=== PATIENT | female | born 1960 | race Two or more races ===

== ENCOUNTER 2019-11-22 10:31 | Inpatient (IN) | payer MEDICARE, OTHER ==
[~2019-11-22] VITALS: Ht 162.6 cm; Wt 79.4 kg
[2019-11-22 12:28] VITALS: BP 122/68
[2019-11-22] MEDS ORDERED: MAG HYDROX/AL HYDROX/SIMETH 30 ML UDC PO PRN (12:30)
[2019-11-22] MEDS ORDERED: ACETAMINOPHEN 325 MG TABLET PO PRN (12:30)
[2019-11-22] MEDS ORDERED: MAGNESIUM HYDROXIDE 30 ML UDC PO PRN (12:30)
[2019-11-22] MEDS ORDERED: BLOOD SUGAR DIAGNOSTIC 1 EACH STRIP IN ONE (12:30)
--- NOTE | 2019-11-22 13:34 | NUR ---
GPS RN ADMITTING NOTE: PATIENT IS A 59 YEAR OLD FEMALE BROUGHT IN TO THE HOSPITAL BY AMBULANCE DIRECT ADMIT FROM [facility]. PATIENT IS ADMITTED ON A 5150 FOR GD. PER HOLD, CLIENT PRESENTS CONFUSED AND INSISTS SHE IS IN [place], [place]. SHE APPEARS TO BE HAVING AH/VH, ASKS "WHO IS THAT SCREAMING...; THERE IS SOMEONE IN THE BUSHES". SHE IS NOT ORIENTED AND CANNOT PROVIDE VIABLE PLAN FOR GOOD AND INTERMEDIATE TODAY. 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 UPON FACE TO FACE EVALUATION PATIENT APPEARS SOMNOLENT. UNABLE TO ASSESS MENTAL STATUS. WHEN ASKED WHY SHE IS HERE PATIENT MUMBLED, "YOU KNOW WHY, I NEED TO PRETEND". PATIENT REPORTEDLY WAS ADMINISTERED 2MG ATIVAN PO AT PREVIOUS HOSPITAL BEFORE TRANSPORT. PATIENTS VITALS ARE 122/68 20 RESPIRATIONS, 68 PULSE AND 96 PULSE OX. PATIENT REFUSED SKIN ASSESSMENT. PATIENTS RIGHTS HANDBOOK AND GUIDE TO PRESCRIPTIONS GIVEN. WILL CONTINUE TO MONITOR Q15 FOR MOOD, SAFETY AND BEHAVIOR PER GPS POLICY
[2019-11-22 16:00] VITALS: BP 145/64
[2019-11-22 20:23] VITALS: BP 127/82
[2019-11-22] MEDS: OLANZAPINE 5 MG TABLET PO SCH (20:47)
[2019-11-22] MEDS: LITHIUM CARBONATE (300 MG CAP) 300 MG CAPSULE PO SCH (20:47)
[2019-11-22] MEDS ORDERED: LITHIUM CARBONATE 150 MG CAPSULE PO SCH (21:00)
[2019-11-22] MEDS: TEMAZEPAM 7.5 MG CAPSULE PO PRN (22:27)
--- NOTE | 2019-11-23 04:54 | NUR ---
spare hand notes pt woke up now after sleep medication given last night. She stated she feel better after she slept for how many hours. still disorientation noted and confusion. no signs of any distress noted. will continue q 15 minutes monitoring for safety.
[2019-11-23 07:26] LABS: ALBUMIN 3.8 g/dL (3.4-5.0); BILIRUBIN,TOTAL 0.4 mg/dL (0.2-1.0); CALCIUM, SERUM 9.1 mg/dL (8.5-10.1); CHOLESTEROL 157 mg/dL (<200); CREATININE 0.8 mg/dL (0.6-1.3); HDL CHOLESTEROL 35 mg/dL (40-60); LDL 111 mg/dL (0-99); POTASSIUM 3.7 mmol/L (3.5-5.1); TOTAL PROTEIN, SERUM 7.7 g/dL (6.4-8.2); TRIGLYCERIDES 117 mg/dL (30-150)
[2019-11-23 08:00] VITALS: BP 155/70
[2019-11-23] MEDS: LITHIUM CARBONATE (300 MG CAP) 300 MG CAPSULE PO SCH ×2 (08:50→21:07)
[2019-11-23] MEDS: OLANZAPINE 5 MG TABLET PO SCH ×2 (08:52→21:07)
--- NOTE | 2019-11-23 15:08 | NUR ---
Family Contact: SW called the pts brother, Delio ([phone]), and left a message on his voicemail stating that the SW would like to discuss the pts treatment and discharge plan.
[2019-11-23 16:00] VITALS: BP 147/85
--- NOTE | 2019-11-23 16:16 | NUR ---
Initial Discharge Plan: Pt states that she currently resides in her home located at [address] [place] [address], [place] [address] with a friend. SW was unable to contact the pts brother, Delio ([phone]), to confirm this. Pt stated that she wanted to return to her home. MAGALI will work with the pt and the MD regarding pts discharge planning. SW will form a safe and proper discharge.
[2019-11-23 20:30] VITALS: BP 139/72
[2019-11-23] MEDS: TEMAZEPAM 7.5 MG CAPSULE PO PRN (23:29)
--- NOTE | 2019-11-23 23:29 | NUR ---
GPS-RN NOTE: INSOMNIA PATIENT C/O INABILITY TO SLEEP. ADMINISTERED RESTORIL 15MG PO ORDERED. WILL CONTINUE TO MONITOR.
[2019-11-24 07:29] LABS: BASOPHILS # (AUTO) 0.1 /CMM (0.0-0.2); BASOPHILS % (AUTO) 0.7 % (0.0-2.0); EOSINOPHILS % (AUTO) 8.2 % (0.0-6.0); HEMATOCRIT 42 % (33-45); HEMOGLOBIN 13.9 g/dL (11.5-14.8); LYMPHOCYTES # (AUTO) 2.8 /CMM (0.8-4.8); LYMPHOCYTES % (AUTO) 36.3 % (20.0-44.0); MEAN CORPUSCULAR HGB CONC 33 g/dl (31.0-36.0); MEAN CORPUSCULAR VOLUME 95 fL (82-100); MONOCYTES # (AUTO) 0.6 /CMM (0.1-1.30); MONOCYTES % (AUTO) 7.7 % (2.0-12.0); NEUTROPHILS # (AUTO) 3.6 /CMM (1.8-8.9); NEUTROPHILS % (AUTO) 47.1 % (43.0-81.0); PLATELET COUNT (AUTO) 259 /CMM (150-450); RED BLOOD CELL COUNT(AUTO) 4.42 MIL/uL (4.0-5.2); WHITE BLOOD COUNT (AUTO) 7.6 K/uL (4.3-11.0)
[2019-11-24 07:47] LABS: THYROID STIMULATING HORMONE 4.761 uIU/mL (0.358-3.74)
[2019-11-24 08:00] VITALS: BP 167/84
[2019-11-24] MEDS: OLANZAPINE 5 MG TABLET PO SCH ×2 (08:27→21:30)
[2019-11-24] MEDS: LITHIUM CARBONATE (300 MG CAP) 300 MG CAPSULE PO SCH ×2 (08:27→21:31)
--- NOTE | 2019-11-24 12:18 | NUR ---
Individual Intervention: SW met with the pt at bedside. Pt is alert and oriented x4. Pt appeared agitated and stated that she does not need to be in the hospital. She stated that everything was a misunderstanding and that she should be allowed to go home soon. Pt appears to be in a labile mood and is verbally aggressive. Pt is not appropriate for individual therapy at this time.
--- NOTE | 2019-11-24 12:38 | NUR ---
Family Contact: SW called the pts brother, Delio ([phone]), and left a message on his voicemail stating that the SW would like to discuss the pts treatment and discharge plan.
[2019-11-24 16:00] VITALS: BP 133/60
--- NOTE | 2019-11-24 19:30 | NUR ---
GPS RN NOTE, RECEIVED PATIENT AWAKE AND IN BED, PATIENT HAS NO COMPLAINTS OF PAIN. PATIENT IS DISPLAYING NO S/S OF APPARENT DISTRESS AT THIS TIME. PATIENT BREATHING IS UNLABORED WITH EQUAL RISE AND FALL OF THE CHEST. PATIENT IS ALERT AND ORIENTED X 2 ON ROOM AIR WITH A SPO2 97%. PATIENT IS COMPLIANT WITH MEDICATION, PARANOID, ANXIOUS AT TIMES, NEEDS CONSTANT REDIRECTION. PATIENT DENIES SUICIDE IDEATIONS AND HOMICIDAL IDEATIONS AT THIS TIME. PATIENT ASSISTED WITH TURNING AND REPOSITIONING Q2HR AND PRN FOR COMFORT AND CIRCULATION. PATIENT HAS NO NEEDS AT THIS TIME. PATIENT EDUCATED ON THE USE OF THE CALL BOOTHE. PATIENT BED SIDE RAILS UP X 2 FOR SAFETY, BED IS LOCKED, AND LOW. WILL CONTINUE TO MONITOR Q15MIN WITH THE HELP OF STAFF TO MAINTAIN SAFETY.
[2019-11-24 20:17] VITALS: BP 134/57
--- NOTE | 2019-11-24 21:30 | NUR ---
GPS RN NOTE, PATIENT REFUSED ZYPREXA 5 MG PO HS. OFFERED ZYPREXA THREE TIMES AND STILL PATIENT REFUSED STATING, I DON'T WANT THAT MEDICATION AT NIGHT, I ONLY WANT IT DURING THE DAY TIME ". EDUCATED PATIENT ON THE RISKS AND BENEFITS OF TAKING AND REFUSING AFOREMENTIONED MEDICATION. WILL CONTINUE TO MONITOR THIS PATIENT.
[2019-11-24] MEDS: TEMAZEPAM 7.5 MG CAPSULE PO PRN (22:46)
--- NOTE | 2019-11-24 22:46 | NUR ---
GPS RN NOTE, PATIENT HAS A COMPLAINT OF NOT BEING ABLE TO SLEEP AND IS REQUESTING RESTORIL AT THIS TIME. PATIENT VITAL SIGNS ARE STABLE. GAVE RESTORIL 15 MG PO HS PRN ORDERED. WILL REASSESS FOR INSOMNIA AND I WILL CONTINUE TO MONITOR THIS PATIENT.
[2019-11-25] MEDS: OLANZAPINE 5 MG TABLET PO SCH ×2 (08:47→20:53)
[2019-11-25] MEDS: LITHIUM CARBONATE (300 MG CAP) 300 MG CAPSULE PO SCH ×2 (08:47→20:53)
--- NOTE | 2019-11-25 09:00 | NUR ---
RN NOTE- PT IN BED AWAKENS EASILY ALERT ORIENTED PERSON PLACE ONLY, CONFUSED MED COMPLIANT TEARFUL THOUGH SEEMS A BIT BETTER THAN SEVERAL DAYS AGO DURING INTERACTION W THIS RN. DENIES TIAN [place]ING[place]AM. STATES SHE ISNT THINKING ABOUT SI Addendum: 11/25/19 at 0939 by BRITTANY ZHU RN THERESE NOTE- ABOVE INFORMATION CHARTED ON WRONG PT.
--- NOTE | 2019-11-25 15:03 | NUR ---
FAMILY CONTACT: SW called the pts brother, Delio ([phone]), and left a message stating that the SW would like to discuss the pts treatment and discharge plan.
--- NOTE | 2019-11-25 15:08 | NUR ---
INDIVIDUAL INTERVENTION: SW attempted to meet with pt after pt was asked to leave by the radiation officer during her probable cause hearing due to her aggressive behavior and inability to follow directions during the hearing. Pt was verbally aggressive and became volatile with SW and began getting close to SW's face and pointing her finger. Pt did not allow SW to speak and was talking over SW. SW excused herself and did not continue with the conversation due to pt aggressive/ manic behavior. Pts mood is manic with aggressive tone and is hyperverbal with lose association.
--- NOTE | 2019-11-25 15:13 | NUR ---
FRIEND CONTACT: SW contacted pts friend Maria Elena ([phone]) who refused to provide SW with information regarding pts current living situation.
[2019-11-25 16:05] VITALS: BP 127/74
--- NOTE | 2019-11-25 19:30 | NUR ---
GPS RN NOTE, RECEIVED PATIENT AWAKE AND IN BED, PATIENT HAS NO COMPLAINTS OF PAIN. PATIENT IS DISPLAYING NO S/S OF APPARENT DISTRESS AT THIS TIME. PATIENT BREATHING IS UNLABORED WITH EQUAL RISE AND FALL OF THE CHEST. PATIENT IS ALERT AND ORIENTED X 2 ON ROOM AIR WITH A SPO2 97%. PATIENT IS COMPLIANT WITH MEDICATION, PARANOID, ANXIOUS, ACCUSATORY, THREATENING STAFF, NEEDS CONSTANT REDIRECTION. PATIENT DENIES SUICIDE IDEATIONS AND HOMICIDAL IDEATIONS AT THIS TIME. PATIENT ASSISTED WITH TURNING AND REPOSITIONING Q2HR AND PRN FOR COMFORT AND CIRCULATION. PATIENT HAS NO NEEDS AT THIS TIME. PATIENT EDUCATED ON THE USE OF THE CALL BOOTHE. PATIENT BED SIDE RAILS UP X 2 FOR SAFETY, BED IS LOCKED, AND LOW. WILL CONTINUE TO MONITOR Q15MIN WITH THE HELP OF STAFF TO MAINTAIN SAFETY.
[2019-11-25] MEDS: LORAZEPAM 0.5 MG TABLET PO PRN (23:07)
--- NOTE | 2019-11-25 23:07 | NUR ---
GPS RN NOTE, PATIENT HAS A COMPLAINT OF FEELING ANXIOUS AND WOULD ATIVAN AT THIS TIME. PATIENT VITAL SIGNS ARE STABLE. GAVE ATIVAN 1 MG PO Q4HR PRN ORDERED. WILL REASSESS FOR ANXIETY AND I WILL CONTINUE TO MONITOR THIS PATIENT.
[2019-11-26 08:00] VITALS: BP 111/58
[2019-11-26] MEDS: LITHIUM CARBONATE (300 MG CAP) 300 MG CAPSULE PO SCH ×3 (08:48→16:40)
[2019-11-26] MEDS: OLANZAPINE 5 MG TABLET PO SCH (08:48)
[2019-11-26] MEDS ORDERED: OLANZAPINE 5 MG TABLET PO SCH (09:00)
[2019-11-26 16:00] VITALS: BP 132/71
[2019-11-26 20:00] VITALS: BP 136/74
[2019-11-26] MEDS: OLANZAPINE 10 MG TABLET PO SCH (21:44)
[2019-11-26] MEDS: TEMAZEPAM 7.5 MG CAPSULE PO PRN (23:30)
[2019-11-27 08:00] VITALS: BP 139/75
[2019-11-27] MEDS: LITHIUM CARBONATE (300 MG CAP) 300 MG CAPSULE PO SCH ×3 (08:51→16:09)
[2019-11-27] MEDS: LORAZEPAM 0.5 MG TABLET PO PRN (08:52)
[2019-11-27] MEDS: OLANZAPINE 5 MG TABLET PO SCH (08:52)
[2019-11-27] MEDS: NICOTINE PATCH (21MG) 21 MG PATCH.TD24 TD SCH (08:58)
--- NOTE | 2019-11-27 09:03 | NUR ---
GPS/RN-NOTES NOTED PATIENT PACING IN AND OUT THE HALLWAY,INTRUSIVE AND HYPERVERBAL. ATIVAN 1MG P.O GIVEN PRN ORDER. WILL CONT. MONITORING FOR SAFETY AND BEHAVIOR.
[2019-11-27 16:00] VITALS: BP 135/75
[2019-11-27 20:37] VITALS: BP 131/71
[2019-11-27] MEDS: OLANZAPINE 10 MG TABLET PO SCH (21:26)
[2019-11-28] MEDS: TEMAZEPAM 7.5 MG CAPSULE PO PRN ×2 (01:32→21:38)
--- NOTE | 2019-11-28 01:34 | NUR ---
Pt c/o insomnia. Least restrictive measures ineffective. Restoril 15 mg po prn given as ordered. Will continue to monitor.
--- NOTE | 2019-11-28 02:35 | NUR ---
Post 1 hr Restoril effective. Pt asleep in bed easy to arouse. Will continue to monitor.
[2019-11-28 08:00] VITALS: BP 117/66
[2019-11-28] MEDS: NICOTINE PATCH (21MG) 21 MG PATCH.TD24 TD SCH (08:46)
[2019-11-28] MEDS: LITHIUM CARBONATE (300 MG CAP) 300 MG CAPSULE PO SCH ×3 (08:46→17:00)
[2019-11-28] MEDS: OLANZAPINE 5 MG TABLET PO SCH (08:48)
--- NOTE | 2019-11-28 13:43 | NUR ---
SNF Referral: MAGALI faxed a referral to [facility] with attn to Darlyn to the fax number: [phone].
[2019-11-28 16:00] VITALS: BP 162/71
[2019-11-28 20:06] VITALS: BP 152/80
[2019-11-28] MEDS: OLANZAPINE 10 MG TABLET PO SCH (21:37)
[2019-11-29 08:00] VITALS: BP 143/79
[2019-11-29] MEDS: LITHIUM CARBONATE (300 MG CAP) 300 MG CAPSULE PO SCH ×2 (08:23→13:16)
[2019-11-29] MEDS: NICOTINE PATCH (21MG) 21 MG PATCH.TD24 TD SCH (08:23)
[2019-11-29] MEDS: OLANZAPINE 10 MG TABLET PO SCH ×2 (08:23→21:00)
--- NOTE | 2019-11-29 09:00 | NUR ---
RN NOTE- PT REQUIRES FREQUENT REDIRECTION AND BOUNDARIES. MED COMPLIANT . ZYPREXA STARTED. PO INTAKE GOOD,. WANDERS UNIT LOUD INTRUSIVE AT TIMES
[2019-11-29] MEDS: AMLODIPINE BESYLATE 5 MG TABLET PO SCH (11:00)
--- NOTE | 2019-11-29 14:30 | NUR ---
Individual Intervention: SW encouraged the pt to participate in group therapy but the pt is paranoid and stated that she does not want others to hear her. SW met with the pt in the activities room. Pt is alert and oriented x4. Pt appeared agitated and stated that she does not need to be in the hospital and began shouting at the SW that she is not helping and that she has been keeping her here longer against her will. She stated that everything was a misunderstanding and that she should be allowed to go home soon. Pt appears to be in a labile mood and is verbally aggressive. Pt is not appropriate for individual therapy at this time.
[2019-11-29 16:00] VITALS: BP 133/70
[2019-11-29 20:22] VITALS: BP 124/66
[2019-11-29] MEDS ORDERED: LITHIUM CARBONATE (300 MG CAP) 300 MG CAPSULE PO SCH (21:00)
--- NOTE | 2019-11-30 06:50 | NUR ---
RN NOTES, NO SIGNIFICANTS CHANGE IN CONDITION, PATIENT COMPLAIN WITH CARE, DISRUPTIVE BEHAVIOR EXHIBITED AT TIMES, DEMANDING WITH CARE, AND PARANOID ABOUT MEDICATIONS, ADEQUATE HORS OF SLEEP, WILL ENDORSED CONTINUITY OF CARE TO ONCOMING NOSE
[2019-11-30 08:00] VITALS: BP 133/74
[2019-11-30] MEDS: NICOTINE PATCH (21MG) 21 MG PATCH.TD24 TD SCH (09:22)
[2019-11-30] MEDS: LITHIUM CARBONATE 150 MG CAPSULE PO SCH ×2 (09:22→12:19)
[2019-11-30] MEDS: AMLODIPINE BESYLATE 5 MG TABLET PO SCH (09:22)
[2019-11-30] MEDS: OLANZAPINE 10 MG TABLET PO SCH ×2 (09:24→21:38)
--- NOTE | 2019-11-30 09:43 | NUR ---
SNF Contact: MAGALI contacted Darlyn ([phone]), clinical pharmacy coordinator from [facility], and inquired about the referral that was sent on Thursday. She stated that she did not receive it and to send the referral to an alternate fax number: [phone].
--- NOTE | 2019-11-30 09:44 | NUR ---
SNF Referral: SW faxed a referral to the following two facilities: [facility] with attn to Darlyn to the fax number: [phone] [facility] with attn to Aubrie to the fax number: [phone].
--- NOTE | 2019-11-30 11:45 | NUR ---
SNF Contact: Quan ([phone]), Renew Director, contacted the SW and stated that he does not see anything in the medical notes that determine the pts skilled need. SW stated that she would look through them and fax over more appropriate notes.
--- NOTE | 2019-11-30 11:46 | NUR ---
SNF Contact: MAGALI faxed over additional medical notes to Quan from [facility] to the fax number: [phone].
[2019-11-30 16:00] VITALS: BP 126/73
--- NOTE | 2019-11-30 16:17 | NUR ---
Individual counseling : SW met with pt. at bedside to engage in individual counseling. However, pt. was asleep and was not easily rousable. Patient will be invited to attend future group or individual counseling.
[2019-11-30 20:15] VITALS: BP 122/67
[2019-11-30] MEDS: TEMAZEPAM 7.5 MG CAPSULE PO PRN (21:38)
[2019-11-30] MEDS: LITHIUM CARBONATE (300 MG CAP) 300 MG CAPSULE PO SCH (21:38)
[2019-12-01] MEDS: LORAZEPAM 0.5 MG TABLET PO PRN (02:17)
--- NOTE | 2019-12-01 07:37 | NUR ---
GPS RN NOTE: OPENING RECEIVED PATIENT AOX2-3 UP IN BED, EATING BREAKFAST. PATIENT IS AMBULATORY WITH STEADY GAIT. PATIENT IS HYPERVERBAL, FORGETFUL. MED COMPLIANT. COOPERATIVE WITH TREATMENT PLAN. BREATHING IS EVEN AND UNLABORED WITH EQUAL RISE AND OF FALL OF CHEST. PATIENT DENIES PAIN AND IS EXHIBITING NO SIGNS OF DISTRESS. SAFETY PRECAUTIONS IN PLACE. BED IN LOCKED AND LOW POSITION WITH 2 SIDE RAILS UP FOR SAFETY. NEEDS MET. WILL CONTINUE TO MONITOR Q15 FOR MOOD, SAFETY AND BEHAVIOR.
[2019-12-01 08:00] VITALS: BP 139/71
[2019-12-01] MEDS: LITHIUM CARBONATE 150 MG CAPSULE PO SCH ×2 (08:26→12:59)
[2019-12-01] MEDS: OLANZAPINE 10 MG TABLET PO SCH ×2 (08:26→21:09)
[2019-12-01] MEDS: AMLODIPINE BESYLATE 5 MG TABLET PO SCH (08:27)
[2019-12-01] MEDS: NICOTINE PATCH (21MG) 21 MG PATCH.TD24 TD SCH (08:40)
--- NOTE | 2019-12-01 08:45 | NUR ---
SNF REFERRAL: SW recived a call from ROSALES, high school admissions representative at [facility] (SNF) [address] [place] [place], [address] andre pt has been accepted to the facility with COVID-19 clearance.
--- NOTE | 2019-12-01 11:37 | NUR ---
INDIVIDUAL MEETING: SW met with pt at bedside on this present day to discuss her discharge plan. Pt states that she wishes to return to her home that is located at [address] [place] [address]. Pt provided SW with her brother See' [phone] contact information so that SW can confirm she lives there. Pt also provided pt with the contact information for her niece Rona [phone], Dr. Fraser [phone], and Adelso, caser up [phone]. SW informed her that she has been accepted at SNF and pt became agitated and stated that she refused to go to a SNF. Pt stated that she would arrange for her own transportation back to [place].
--- NOTE | 2019-12-01 11:42 | NUR ---
FAMILY CONTACT: SW called the pts brother, See ([phone]), and left a message stating that the SW would like to discuss the pts treatment and discharge plan.
--- NOTE | 2019-12-01 11:43 | NUR ---
FAMILY CONTACT: MAGALI contacted pts niece Rona [phone] to conform pts current living situation. Rona confirmed that pt lives at [address], [place] [address] and states she will be assisting pt with transportation back home. She states it is safe for pt to travel on her own via train and states she will pay for a taxi for pt to get to the train station from the hospital and once she arrives to [place] she will be picking pt up form the train station and transporting her home. MAGALI informed her pt will be discharged on Thursday12/06/19. Nice agreed with discharge plan.
--- NOTE | 2019-12-01 15:36 | NUR ---
INDIVIDUAL INTERVENTION: SW informed pt that she has spoken with her niece Rona who confirmed pts address and current living situation. SW informed pt that she will be discharging on Thursday12/06/19 and SW stated she will be assisting pt with buying her [employer] ticket and arranging transportation for her to be dropped off at the [place] [facility] station. Pt agreed with discharge plan.
[2019-12-01 16:00] VITALS: BP 121/73
[2019-12-01] MEDS: TEMAZEPAM 7.5 MG CAPSULE PO PRN (21:09)
[2019-12-01] MEDS: LITHIUM CARBONATE (300 MG CAP) 300 MG CAPSULE PO SCH (21:09)
[2019-12-01 21:10] VITALS: BP 131/70
[2019-12-02 07:48] VITALS: BP 139/75
[2019-12-02 08:00] VITALS: BP 139/75
[2019-12-02] MEDS: AMLODIPINE BESYLATE 5 MG TABLET PO SCH (08:13)
[2019-12-02] MEDS: OLANZAPINE 10 MG TABLET PO SCH ×3 (08:13→22:29)
[2019-12-02] MEDS: LITHIUM CARBONATE 150 MG CAPSULE PO SCH ×2 (08:13→12:30)
[2019-12-02] MEDS: NICOTINE PATCH (21MG) 21 MG PATCH.TD24 TD SCH (08:14)
--- NOTE | 2019-12-02 15:25 | NUR ---
Car Issues: Pt asked the SW to call the [facility] where the pt left her car before being admitted to [facility]. SW spoke to Preston ([phone]) in the [employer] and provided him information on the car. He stated that he went and looked for it based on the description and spoke to the managers if anyone had the car towed and stated that no one knows anything about the car. SW informed the pt.
[2019-12-02 16:00] VITALS: BP 123/68
[2019-12-02 20:10] VITALS: BP 125/68
[2019-12-02] MEDS: LITHIUM CARBONATE (300 MG CAP) 300 MG CAPSULE PO SCH (21:21)
[2019-12-03 08:00] VITALS: BP 132/77
[2019-12-03] MEDS: LITHIUM CARBONATE 150 MG CAPSULE PO SCH ×2 (08:16→13:52)
[2019-12-03] MEDS: OLANZAPINE 10 MG TABLET PO SCH ×2 (08:16→21:25)
[2019-12-03] MEDS: AMLODIPINE BESYLATE 5 MG TABLET PO SCH (08:17)
[2019-12-03] MEDS: NICOTINE PATCH (21MG) 21 MG PATCH.TD24 TD SCH (08:17)
--- NOTE | 2019-12-03 09:00 | NUR ---
RN NOTE- PT ALERT IN HALLWAYS AND ROOM WANDERING UNIT. LESS INTRUSIVE LESS ANXIETY, QUIETER THAN PREVIOUS DAYS W THIS RN. PT POLITE AND INTERACTIVE,.. DENIES ALL, NEEDS MET MED COMPLIANT
[2019-12-03 16:00] VITALS: BP 123/75
[2019-12-03 20:00] VITALS: BP 106/52
[2019-12-03] MEDS: LITHIUM CARBONATE (300 MG CAP) 300 MG CAPSULE PO SCH (21:25)
[2019-12-03] MEDS: TEMAZEPAM 7.5 MG CAPSULE PO PRN (21:57)
--- NOTE | 2019-12-04 07:05 | NUR ---
GPS RN OPENING NOTES RECEIVED PATIENT IN BED AWAKE AT THIS TIME. AO X2-3. NO S/S OF ANY ACUTE DISTRESS NOTED. NO C/O PAIN AT THIS TIME. RESPIRATIONS EVEN AND UNLABORED WITH EQUAL RISE AND FALL OF THE CHEST. PT ON RA AND SATURATING AT 96%. PT DENIES ANY SI AND HI AT THIS TIME. PT ABLE TO VERBALIZED NEEDS. BED IN LOWEST LOCKED POSITION, HOB ELEVATE, SIDE RAILS UP, BED ALARM ON, CALL LIGHT WITHIN REACH, WILL CONTINUE TO MONITOR Q15MIN
[2019-12-04 08:00] VITALS: BP 118/69
[2019-12-04] MEDS: NICOTINE PATCH (21MG) 21 MG PATCH.TD24 TD SCH (08:35)
[2019-12-04] MEDS: LITHIUM CARBONATE 150 MG CAPSULE PO SCH ×2 (08:35→12:53)
[2019-12-04] MEDS: OLANZAPINE 10 MG TABLET PO SCH ×2 (08:36→21:36)
[2019-12-04] MEDS: AMLODIPINE BESYLATE 5 MG TABLET PO SCH (08:36)
[2019-12-04] MEDS: LEVOTHYROXINE SODIUM 25 MCG TABLET PO SCH (09:06)
[2019-12-04 16:00] VITALS: BP 138/82
[2019-12-04 21:20] VITALS: BP 116/68
[2019-12-04] MEDS: LITHIUM CARBONATE (300 MG CAP) 300 MG CAPSULE PO SCH (21:36)
[2019-12-05] MEDS: TEMAZEPAM 7.5 MG CAPSULE PO PRN (01:01)
--- NOTE | 2019-12-05 01:05 | NUR ---
GPS RN NOTES PT CAME TO THE NURSING STATION AT ABOUT 0055 TO COMPLAIN SHE IS NOT ABLE TO SLEEP, AND REQUESTED FOR SLEEP MEDICATION. RESTORIL 7.5MG 2 CAPS/15MG GIVEN PO ORDERED. PT IS BACK IN BED. WILL CONTINUE TO MONITOR AND REASSESS.
[2019-12-05 08:00] VITALS: BP 121/67
[2019-12-05] MEDS: OLANZAPINE 10 MG TABLET PO SCH ×2 (08:25→21:01)
[2019-12-05] MEDS: AMLODIPINE BESYLATE 5 MG TABLET PO SCH (08:25)
[2019-12-05] MEDS: LEVOTHYROXINE SODIUM 25 MCG TABLET PO SCH (08:25)
[2019-12-05] MEDS: NICOTINE PATCH (21MG) 21 MG PATCH.TD24 TD SCH (08:26)
[2019-12-05] MEDS: LITHIUM CARBONATE 150 MG CAPSULE PO SCH ×2 (08:26→12:01)
--- NOTE | 2019-12-05 12:32 | NUR ---
INDIVIDUAL MEETING: MAGALI met with pt and provided reassurance with her discharge back home to [place]. MAGALI explained that once MD gives discharge order MAGALI will assist her with buying an [employer]tra[employer] ticket back to [place]. MAGALI stated that a taxi will be provided to the train station from the hospital. Pt agreed with discharge plan. Addendum: 12/05/19 at 1247 by DAYANNA DE LOS SANTOS MAGALI coordinated with community development worker to assist pt buy [employer]tra[employer] ticket once MD gives discharge order. Train departs from [place] train station at 0856.
--- NOTE | 2019-12-05 14:47 | NUR ---
Individual Counseling: This SW met with pt. at bedside to facilitate therapeutic milieu regarding support systems. Patient was receptive to meeting with SW. The patient discussed their family system and relationships. SW educated patient regarding five love languages. Patient expressed understanding and stated she is willing to work on her relationships and communication. Patient will be invited to participate in future counseling session
[2019-12-05 16:00] VITALS: BP 123/68
--- NOTE | 2019-12-05 18:50 | NUR ---
Patient remains stable , hyperverbal, pleasant , med compliant. All needs attended . will endorse to next shift for GEORGE
[2019-12-05 20:25] VITALS: BP 110/57
[2019-12-05] MEDS: LITHIUM CARBONATE (300 MG CAP) 300 MG CAPSULE PO SCH (21:01)
[2019-12-06 08:00] VITALS: BP 134/66
[2019-12-06] MEDS: AMLODIPINE BESYLATE 5 MG TABLET PO SCH (08:30)
[2019-12-06] MEDS: LITHIUM CARBONATE 150 MG CAPSULE PO SCH ×2 (08:31→12:11)
[2019-12-06] MEDS: OLANZAPINE 10 MG TABLET PO SCH ×2 (08:31→21:01)
[2019-12-06] MEDS: LEVOTHYROXINE SODIUM 25 MCG TABLET PO SCH (08:31)
[2019-12-06] MEDS: NICOTINE PATCH (21MG) 21 MG PATCH.TD24 TD SCH (08:32)
--- NOTE | 2019-12-06 09:00 | NUR ---
GPS RN NOTE: OPENING PATIENT AOX3 AMBULATORY STEADY GAIT HYPERVERBAL,RESTLESS, . MED COMPLIANT. COOPERATIVE WITH TREATMENT PLAN. PATIENT DENIES PAIN NO SIGNS OF DISTRESS. SAFETY PRECAUTIONS IN PLACE. ALL NEEDS MET . WILL CONTINUE TO MONITOR Q15 FOR MOOD, SAFETY AND BEHAVIOR.
--- NOTE | 2019-12-06 11:02 | NUR ---
FAMILY CONTACT: MAGALI contacted pts jhon Rea [phone] to inform her pt will be discharged tomorrow 12/07/19. [place] mailbox is not set up and MAGALI was unable to leave a message. MAGALI will try again at a later time.
[2019-12-06 16:00] VITALS: BP 145/74
[2019-12-06 20:54] VITALS: BP 119/55
[2019-12-06] MEDS: LITHIUM CARBONATE (300 MG CAP) 300 MG CAPSULE PO SCH (21:00)
[2019-12-06] MEDS: TEMAZEPAM 7.5 MG CAPSULE PO PRN (22:07)
--- NOTE | 2019-12-06 22:11 | NUR ---
GPS RN NOTES: INSOMNIA PT C/O UNABLE TO SLEEP. PT REQUESTED "SLEEPING MEDICATION". OFFERED RESTORIL PRN ORDERED. PT AGREED AND TOLERATED MEDICATION WELL. CONTINUE TO MONITOR. CONTINUE TO MONITOR.
--- NOTE | 2019-12-07 07:30 | NUR ---
WIRELINE SUPERVISOR NOTE:PATIENT ALERT ,VERBALLY RESPONSIVE ,VS STABLE ,DENIES SUICIDAL IDEATION AND HOMICIDAL IDEATION ,DENIES AUDITORY ,VISUAL HALLUCINATION .NO C/O PAIN ,ALL BELONGINGS RETURNED TO PATIENT, PRESCRIPTION FOR PSYCH MEDICATION TO PATIENT AND MEDICAL MEDICATION CALLED TO HER PHARMACY ALL BELONGINGS RETURNED TO PATIENT , AND CALLED BACK WITH DISCHARGE ORDERS..PATIENT DISCHARGE WITH TAXI AT 07:30 AM .
--- NOTE | 2019-12-07 09:40 | NUR ---
DISCHARGE NOTE: : Pt was discharged at 0730am via taxi voucher to [place] [facility] Address: [address] [facility], [place] [address]. Pt will be traveling to her home [address], [place] [address]. Pts jhon Rea [phone] has been notified and agreed with discharge plan. Pts mood was euthymic with congruent affect. Pt denied visual/auditory hallucinations and denied suicidal/homicidal ideation. Pt will be following up with Psychiatrist: Dr. Chavez Damian Address: [address] [place] [address] [address], [place] [address] and Game Tester: [facility] Address: [address] [facility] [address], [place] [address] . The multidisciplinary exit care form was done, printed, signed, and given to the patient.
== END 2019-12-07 07:30 | disposition home or self-care (01) | DRG 885 ==
LOC: GPS 11:57
PROVIDERS: ADMIT Psychiatry & Neurology Psychiatry; ATTEND Registered Nurse
DX: F31.64 Bipolar disorder, current episode mixed, severe, with psychotic features (principal); F23 Brief psychotic disorder; F41.9 Anxiety disorder, unspecified; I10 Essential (primary) hypertension; E66.8 Other obesity; Z68.30 Body mass index [BMI] 30.0-30.9, adult; Z91.14 Patient's other noncompliance with medication regimen; E86.0 Dehydration
CPT/HCPCS: 36415; 76536-TC; 80053-TC; 80061-TC; 82962-TC; 84439-TC; 84443-TC; 85025-TC; 87081-TC